=== PATIENT | male | born 1940 | race Caucasian/White ===

== ENCOUNTER 2019-03-18 10:53 | Day surgery (SDC) | payer MEDICARE | END 2019-03-18 23:33 | disposition home or self-care (01) | LOC: US 10:53 | DX: J90 Pleural effusion, not elsewhere classified (principal) | CPT/HCPCS: 32555; 71045; 88108 ==

== ENCOUNTER 2019-04-07 14:16 | Day surgery (SDC) | payer MEDICARE | END 2019-04-07 23:06 | disposition home or self-care (01) | LOC: US 14:16 | DX: Z48.813 Encounter for surgical aftercare following surgery on the respiratory system (principal); J90 Pleural effusion, not elsewhere classified; C92.10 Chronic myeloid leukemia, BCR/ABL-positive, not having achieved remission; R07.9 Chest pain, unspecified | CPT/HCPCS: 32555; 71045 ==

== ENCOUNTER 2019-05-20 13:28 | Emergency (ER) | payer MEDICARE ==
[~2019-05-20] VITALS: Ht 170.2 cm; Wt 72.6 kg
[2019-05-20] MEDS ORDERED: Aggrenox Capsu1 EACH PO (13:55)
[2019-05-20] MEDS ORDERED: LISI20 PO (13:55)
[2019-05-20] MEDS ORDERED: VITAMIN D-40010 MC1 PO (13:56)
[2019-05-20] MEDS ORDERED: Lovastatin10 MG PO (13:56)
[2019-05-20] MEDS ORDERED: Flomax0.4 MG PO (13:56)
[2019-05-20] MEDS ORDERED: METO50ER PO (13:57)
[2019-05-20] MEDS ORDERED: NORVASC5 MG PO (13:57)
[2019-05-20] MEDS ORDERED: [UNRECOGNIZED DRUG - OTHER] (13:57)
[2019-05-20 14:11] LABS: BASOPHILS ABSOLUTE AUTO 0.02 K/mm3 (0.00-0.23); BASOPHILS PERCENT AUTO 0 % (0-2); EOSINOPHILS ABSOLUTE AUTO 0.08 K/mm3 (0.00-0.68); EOSINOPHILS PERCENT AUTO 1 % (0-6); Hematocrit 40.6 % (37.0-53.0); Hemoglobin 12.6 g/dL (13.5-17.5); IMMATURE GRAN ABSOLUTE AUTO 0.03 K/mm3 (0.00-0.10); IMMATURE GRAN PERCENT AUTO 0 % (0-1); LYMPHOCYTES ABSOLUTE AUTO 2.82 K/mm3 (0.84-5.20); LYMPHOCYTES PERCENT AUTO 38 % (21-46); MONOCYTES ABSOLUTE AUTO 0.42 K/mm3 (0.16-1.47); MONOCYTES PERCENT AUTO 6 % (4-13); Mean Corpuscular HGB 30.8 pg (26.0-34.0); Mean Corpuscular Volume 99 fL (80-100); Mean Platelet Volume 8.8 fL (9.1-12.4); NEUTROPHILS ABSOLUTE AUTO 4.02 K/mm3 (1.96-9.15); NEUTROPHILS PERCENT AUTO 54 % (41-73); Platelet Count 269 K/mm3 (150-400); RDW Coefficient Variation 14.1 % (11.7-14.2); RDW Standard Deviation 51.6 fL (35.1-46.3); Red Blood Cell Count 4.09 M/mm3 (4.30-5.90); White Blood Cell Count 7.39 K/mm3 (4.00-11.30)
[2019-05-20 14:46] LABS: Alanine Aminotransfer (ALT/SGP 11 U/L (12-78); Albumin/Globulin Ratio 0.8 (0.8-1.8); Alk Phos 69 U/L (50-136); Anion Gap 3 mmol/L (6-16); Aspartate Aminotrans (AST/SGOT 16 U/L (12-37); Bilirubin, Total 0.3 mg/dL (0.1-1.0); Blood Urea Nitrogen 10 mg/dL (8-24); Bun/Creatinine Ratio 9.9 (12.0-20.0); CO2, Blood 28 mmol/L (21-32); Calcium, Blood 9.1 mg/dL (8.5-10.1); Chloride, Blood 112 mmol/L (98-108); Creatinine, Blood 1.01 mg/dL (0.60-1.20); Globulin, Blood 3.8 g/dL (2.2-4.0); Glomerular Filtration Rate >60 (60-); Glucose, Blood 125 mg/dL (70-99); Potassium, Blood 3.5 mmol/L (3.5-5.5); Sodium, Blood 143 mmol/L (136-145); Total Protein, Blood 6.8 g/dL (6.4-8.2)
[2019-05-20 14:54] LABS: International Normalized Ratio 1.07; Prothrombin Time Results 11.4 Sec (9.7-11.5)
== END 2019-05-20 16:27 | disposition home or self-care (01) ==
LOC: ER 13:28
PROVIDERS: Emergency Medicine; Physician Assistant
DX: J90 Pleural effusion, not elsewhere classified (principal); I10 Essential (primary) hypertension; C95.90 Leukemia, unspecified not having achieved remission; F17.210 Nicotine dependence, cigarettes, uncomplicated; Z86.73 Personal history of transient ischemic attack (TIA), and cerebral infarction without residual deficits
CPT/HCPCS: 32555; 36415; 71045; 71046; 80053; 85025; 85610; 85730; 93005; 93010; 99285-25

== ENCOUNTER 2019-06-25 10:19 | Inpatient (IN) | payer MEDICARE ==
[~2019-06-25] VITALS: Ht 175.3 cm; Wt 69.8 kg
[~2019-06-25 10:19] MED LIST: Aggrenox Capsu1 EACH PO; Flomax0.4 MG PO; LISI20 PO; Lovastatin10 MG PO; METO50ER PO; NORVASC5 MG PO; SPRYCEL PO; Vitamin D2000 UNIT PO
[2019-06-25 10:55] LABS: BASOPHILS ABSOLUTE AUTO 0.02 K/mm3 (0.00-0.23); BASOPHILS PERCENT AUTO 0 % (0-2); EOSINOPHILS ABSOLUTE AUTO 0.01 K/mm3 (0.00-0.68); EOSINOPHILS PERCENT AUTO 0 % (0-6); IMMATURE GRAN ABSOLUTE AUTO 0.04 K/mm3 (0.00-0.10); IMMATURE GRAN PERCENT AUTO 1 % (0-1); LYMPHOCYTES ABSOLUTE AUTO 2.04 K/mm3 (0.84-5.20); LYMPHOCYTES PERCENT AUTO 30 % (21-46); MONOCYTES ABSOLUTE AUTO 0.59 K/mm3 (0.16-1.47); MONOCYTES PERCENT AUTO 9 % (4-13); Mean Corpuscular HGB 30.9 pg (26.0-34.0); Mean Corpuscular Volume 100 fL (80-100); Mean Platelet Volume 9.1 fL (9.1-12.4); NEUTROPHILS PERCENT AUTO 60 % (41-73); Platelet Count 247 K/mm3 (150-400); RDW Coefficient Variation 15.4 % (11.7-14.2); RDW Standard Deviation 55.8 fL (35.1-46.3); Red Blood Cell Count 2.91 M/mm3 (4.30-5.90)
[2019-06-25 11:12] LABS: Albumin, Blood 2.6 g/dL (3.4-5.0); Albumin/Globulin Ratio 0.7 (0.8-1.8); Bilirubin, Total 0.6 mg/dL (0.1-1.0); Bun/Creatinine Ratio 19.2 (12.0-20.0); Calcium, Blood 8.8 mg/dL (8.5-10.1); Creatinine, Blood 1.72 mg/dL (0.60-1.20); Globulin, Blood 3.6 g/dL (2.2-4.0); Potassium, Blood 4.2 mmol/L (3.5-5.5); Total Protein, Blood 6.2 g/dL (6.4-8.2)
[2019-06-25 11:23] LABS: Troponin I 1.15 ng/mL (0.000-0.040)
[2019-06-25 12:16] LABS: International Normalized Ratio 1.07; Prothrombin Time Results 11.4 Sec (9.7-11.5)
[2019-06-25 13:46] LABS: Magnesium, Blood 2.1 mg/dL (1.6-2.4); Phosphorus, Blood 2.5 mg/dL (2.5-4.9)
[2019-06-25 16:26] LABS: Automated BF WBC Count 0.231 K/mm3 (0-999); Body Fluid WBC Count 231 /mm3 (0-999)
[2019-06-25 16:36] LABS: pH, Body Fluid 7.5
[2019-06-25 16:41] LABS: Lactate Dehydrogenase, Body Fl 69 U/L; Protein, Body Fluid 2.9 g/dL
[2019-06-25 17:29] LABS: RBC Count, Body Fluid 393 /mm3 (0-0)
[2019-06-25 17:34] LABS: Total Cell Count, Body Fluid 100
[2019-06-25 17:35] LABS: Appearance, Body Fluid Clear (Clear); Color, Body Fluid Yellow (None-Yellow)
[2019-06-25 17:54] LABS: Hematocrit 27.9 % (37.0-53.0); Hemoglobin 8.5 g/dL (13.5-17.5)
[2019-06-25 22:06] LABS: Hematocrit 28.3 % (37.0-53.0); Hemoglobin 8.6 g/dL (13.5-17.5)
[2019-06-26 04:11] LABS: BASOPHILS ABSOLUTE AUTO 0.02 K/mm3 (0.00-0.23); BASOPHILS PERCENT AUTO 0 % (0-2); EOSINOPHILS ABSOLUTE AUTO 0.04 K/mm3 (0.00-0.68); EOSINOPHILS PERCENT AUTO 1 % (0-6); Hematocrit 26.7 % (37.0-53.0); Hemoglobin 8.1 g/dL (13.5-17.5); IMMATURE GRAN ABSOLUTE AUTO 0.02 K/mm3 (0.00-0.10); IMMATURE GRAN PERCENT AUTO 0 % (0-1); LYMPHOCYTES ABSOLUTE AUTO 1.69 K/mm3 (0.84-5.20); LYMPHOCYTES PERCENT AUTO 34 % (21-46); MONOCYTES ABSOLUTE AUTO 0.46 K/mm3 (0.16-1.47); MONOCYTES PERCENT AUTO 9 % (4-13); Mean Corpuscular HGB 30.6 pg (26.0-34.0); Mean Corpuscular HGB Conc 30.3 g/dL (31.5-36.5); Mean Corpuscular Volume 101 fL (80-100); Mean Platelet Volume 9.3 fL (9.1-12.4); NEUTROPHILS ABSOLUTE AUTO 2.81 K/mm3 (1.96-9.15); NEUTROPHILS PERCENT AUTO 56 % (41-73); Platelet Count 230 K/mm3 (150-400); RDW Coefficient Variation 15.7 % (11.7-14.2); RDW Standard Deviation 56.9 fL (35.1-46.3); Red Blood Cell Count 2.65 M/mm3 (4.30-5.90); White Blood Cell Count 5.04 K/mm3 (4.00-11.30)
[2019-06-26 04:32] LABS: Albumin, Blood 2.1 g/dL (3.4-5.0); Albumin/Globulin Ratio 0.7 (0.8-1.8); Bilirubin, Total 0.4 mg/dL (0.1-1.0); Bun/Creatinine Ratio 23.6 (12.0-20.0); Calcium, Blood 8.3 mg/dL (8.5-10.1); Creatinine, Blood 1.44 mg/dL (0.60-1.20); Potassium, Blood 4.1 mmol/L (3.5-5.5); Total Protein, Blood 5.1 g/dL (6.4-8.2)
[2019-06-26 14:32] LABS: Hematocrit 26.4 % (37.0-53.0); Hemoglobin 8.1 g/dL (13.5-17.5); Mean Corpuscular HGB 30.3 pg (26.0-34.0); Mean Corpuscular HGB Conc 30.7 g/dL (31.5-36.5); Mean Corpuscular Volume 99 fL (80-100); Mean Platelet Volume 8.9 fL (9.1-12.4); Platelet Count 254 K/mm3 (150-400); RDW Coefficient Variation 15.5 % (11.7-14.2); RDW Standard Deviation 55.6 fL (35.1-46.3); Red Blood Cell Count 2.67 M/mm3 (4.30-5.90); White Blood Cell Count 5.29 K/mm3 (4.00-11.30)
[2019-06-26 14:57] LABS: Percent Saturation 26.1 % (20.0-50.0)
[2019-06-27 05:14] LABS: BASOPHILS ABSOLUTE AUTO 0.01 K/mm3 (0.00-0.23); BASOPHILS PERCENT AUTO 0 % (0-2); EOSINOPHILS ABSOLUTE AUTO 0.08 K/mm3 (0.00-0.68); EOSINOPHILS PERCENT AUTO 2 % (0-6); Hematocrit 23.4 % (37.0-53.0); Hemoglobin 7.3 g/dL (13.5-17.5); IMMATURE GRAN ABSOLUTE AUTO 0.02 K/mm3 (0.00-0.10); IMMATURE GRAN PERCENT AUTO 1 % (0-1); LYMPHOCYTES ABSOLUTE AUTO 1.09 K/mm3 (0.84-5.20); LYMPHOCYTES PERCENT AUTO 29 % (21-46); MONOCYTES ABSOLUTE AUTO 0.38 K/mm3 (0.16-1.47); MONOCYTES PERCENT AUTO 10 % (4-13); Mean Corpuscular HGB 30.5 pg (26.0-34.0); Mean Corpuscular HGB Conc 31.2 g/dL (31.5-36.5); Mean Corpuscular Volume 98 fL (80-100); Mean Platelet Volume 9.1 fL (9.1-12.4); NEUTROPHILS ABSOLUTE AUTO 2.18 K/mm3 (1.96-9.15); NEUTROPHILS PERCENT AUTO 58 % (41-73); Platelet Count 230 K/mm3 (150-400); RDW Coefficient Variation 15.3 % (11.7-14.2); RDW Standard Deviation 54.7 fL (35.1-46.3); Red Blood Cell Count 2.39 M/mm3 (4.30-5.90); White Blood Cell Count 3.76 K/mm3 (4.00-11.30)
[2019-06-27 05:33] LABS: Anion Gap 2 mmol/L (6-16); Blood Urea Nitrogen 28 mg/dL (8-24); Bun/Creatinine Ratio 24.1 (12.0-20.0); CO2, Blood 33 mmol/L (21-32); Calcium, Blood 8.8 mg/dL (8.5-10.1); Chloride, Blood 104 mmol/L (98-108); Creatinine, Blood 1.16 mg/dL (0.60-1.20); Glomerular Filtration Rate >60 (60-); Glucose, Blood 95 mg/dL (70-99); Potassium, Blood 3.6 mmol/L (3.5-5.5); Sodium, Blood 139 mmol/L (136-145)
[2019-06-27 15:57] LABS: Hematocrit 30.2 % (37.0-53.0); Hemoglobin 9.8 g/dL (13.5-17.5); Mean Corpuscular HGB 30.8 pg (26.0-34.0); Mean Corpuscular HGB Conc 32.5 g/dL (31.5-36.5); Mean Corpuscular Volume 95 fL (80-100); Mean Platelet Volume 8.8 fL (9.1-12.4); Platelet Count 272 K/mm3 (150-400); RDW Coefficient Variation 16.3 % (11.7-14.2); RDW Standard Deviation 56.8 fL (35.1-46.3); Red Blood Cell Count 3.18 M/mm3 (4.30-5.90); White Blood Cell Count 4.41 K/mm3 (4.00-11.30)
[2019-06-28 08:25] LABS: Hematocrit 29.1 % (37.0-53.0); Hemoglobin 9.3 g/dL (13.5-17.5); Mean Corpuscular HGB 30.4 pg (26.0-34.0); Mean Corpuscular Volume 95 fL (80-100); Platelet Count 264 K/mm3 (150-400); RDW Coefficient Variation 16.6 % (11.7-14.2); RDW Standard Deviation 56.6 fL (35.1-46.3); Red Blood Cell Count 3.06 M/mm3 (4.30-5.90); White Blood Cell Count 3.97 K/mm3 (4.00-11.30)
[2019-06-29 08:28] LABS: Anion Gap 1 mmol/L (6-16); Blood Urea Nitrogen 10 mg/dL (8-24); Bun/Creatinine Ratio 11.8 (12.0-20.0); CO2, Blood 37 mmol/L (21-32); Calcium, Blood 9.2 mg/dL (8.5-10.1); Chloride, Blood 103 mmol/L (98-108); Creatinine, Blood 0.85 mg/dL (0.60-1.20); Glomerular Filtration Rate >60 (60-); Glucose, Blood 100 mg/dL (70-99); Potassium, Blood 3.5 mmol/L (3.5-5.5); Sodium, Blood 141 mmol/L (136-145)
[2019-06-29] MEDS ORDERED: Aspir 8181 MG PO (16:11)
[2019-06-29] MEDS ORDERED: OMEP20ER PO (16:11)
[2019-06-29] MEDS ORDERED: FURO20 PO (16:11)
[2019-06-29] MEDS ORDERED: FERSU300 PO (16:15)
== END 2019-06-29 16:51 | disposition home or self-care (01) | DRG 186 ==
LOC: ER 10:19 → MEDS 16:10 → PCU 16:10 → MEDS 06-26 11:13 → ENPENDDIS 06-29 14:53 → MEDS 06-29 16:51
PROVIDERS: Emergency Medicine; Hospitalist; Nurse Practitioner Acute Care; ADMIT Internal Medicine
PROC: 0W993ZZ Drainage of Right Pleural Cavity, Percutaneous Approach (ICD-10-PCS; 2019-06-25)
PROC: 30233N1 Transfusion of Nonautologous Red Blood Cells into Peripheral Vein, Percutaneous Approach (ICD-10-PCS; principal; 2019-06-26)
PROC: 0DJ08ZZ Inspection of Upper Intestinal Tract, Via Natural or Artificial Opening Endoscopic (ICD-10-PCS; 2019-06-28)
DX: J90 Pleural effusion, not elsewhere classified (principal); J96.21 Acute and chronic respiratory failure with hypoxia; I21.4 Non-ST elevation (NSTEMI) myocardial infarction; C92.10 Chronic myeloid leukemia, BCR/ABL-positive, not having achieved remission; N17.9 Acute kidney failure, unspecified; D62 Acute posthemorrhagic anemia; Z85.46 Personal history of malignant neoplasm of prostate; Z86.73 Personal history of transient ischemic attack (TIA), and cerebral infarction without residual deficits; E78.5 Hyperlipidemia, unspecified; I10 Essential (primary) hypertension; F17.210 Nicotine dependence, cigarettes, uncomplicated; E86.0 Dehydration; T45.1X5A Adverse effect of antineoplastic and immunosuppressive drugs, initial encounter; Y92.9 Unspecified place or not applicable
CPT/HCPCS: 32555; 36415; 36430; 70450; 71045; 71046; 80048; 80053; 82550; 82728; 83540; 83550; 83615; 83690; 83735; 83880; 83986; 84100; 84145; 84157; 84484; 85014; 85018; 85025; 85027; 85610; 85730; 86850; 86900; 86901; 86923; 89051; 93005; 93010; 93306; 94760; 97110; 97116; 97129; 97130; 97162; 97166; 97530; 97535; 99285-25; C9113; J1940; J2704; J2916; J7050; J7120; P9016

== ENCOUNTER 2019-07-19 16:55 | Inpatient (IN) | payer MEDICARE ==
[~2019-07-19] VITALS: Ht 172.7 cm; Wt 68.4 kg
[~2019-07-19 16:55] MED LIST changes: +Aspir 8181 MG PO; +FERSU300 PO; +FURO20 PO; +METO25ER PO; -METO50ER PO; +OMEP20ER PO
[2019-07-19] MEDS ORDERED: ZESTRIL40 M2 PO (17:28)
[2019-07-19] MEDS ORDERED: AMLODIPINE BESYL5 MG PO (17:29)
[2019-07-19 18:17] LABS: Source, Urine Clean Catch
[2019-07-19 18:21] LABS: Bilirubin, Urine Neg (Neg); Blood, Urine Neg (Neg); Glucose Qualitative, Urine 2+ (Neg); Ketones, Urine Neg (Neg); Leukocyte Esterase, Urine 2+ (Neg); Nitrite, Urine Pos (Neg); Protein, Urine 1+ (Neg); Urobilinogen, Urine NORM (Normal)
[2019-07-19 18:23] LABS: Appearance, Urine Clear (Clear); Color, Urine Yellow (P-Yellow)
[2019-07-19 18:29] LABS: Bacteria Mod /hpf; Red Blood Cells, Urine 0-2 /hpf (0-2); Squamous Epithelial Cells Few /hpf (Few)
[2019-07-19 21:27] LABS: Anion Gap 2 mmol/L (6-16); Blood Urea Nitrogen 18 mg/dL (8-24); Bun/Creatinine Ratio 20.9 (12.0-20.0); CO2, Blood 29 mmol/L (21-32); Calcium, Blood 9.3 mg/dL (8.5-10.1); Chloride, Blood 111 mmol/L (98-108); Creatinine, Blood 0.86 mg/dL (0.60-1.20); Glomerular Filtration Rate >60 (60-); Glucose, Blood 81 mg/dL (70-99); Sodium, Blood 142 mmol/L (136-145)
[2019-07-19 21:28] LABS: Potassium, Blood 6.4 mmol/L (3.5-5.5)
[2019-07-19 22:20] LABS: Source, Urine Catheter
--- NOTE | 2019-07-19 22:22 | NUR ---
CRITICAL HIGH POTASSIUM LAB NOTIFIED THIS RN OF 2100 LAB DRAW HAVING A CRITICAL HIGH POTASSIUM OF 6.4. THIS IS EVEN HIGHER THAN PT'S INTITIAL POTASSIUM OF 6.3 EVEN AFTER MEDICATIONS GIVEN IN ED. PT WAS HAVING LOW OUTPUT AFTER LASIX PO DOSE GIVEN. ONLY HAVING APPROX 200 OUT SINCE GIVEN. NOTIFIED CINDY TO. NEW ORDER FOR IV BUMEX 2 MG X 1 AND STRICT I'S AND O'S. ALSO ORDER FOR CATHETER IF PT AGREED. PT OK WITH CATHETER. 14 GREEK HESS CATHETER PLACED. PT TOLERATED WELL. IV BUMEX GIVEN. RECHECK K AT 0100 AND NOTIFY IF OUTPUT CONTINUES TO BE LOW AFTER IV BUMEX. WILL CONTINUE TO MONITOR.
[2019-07-19 22:23] LABS: Bilirubin, Urine Neg (Neg); Blood, Urine 1+ (Neg); Glucose Qualitative, Urine Neg (Neg); Ketones, Urine Neg (Neg); Leukocyte Esterase, Urine 3+ (Neg); Nitrite, Urine Pos (Neg); Protein, Urine Neg (Neg); Urobilinogen, Urine NORM (Normal)
[2019-07-19 22:25] LABS: Appearance, Urine Clear (Clear); Color, Urine Yellow (P-Yellow)
[2019-07-19 22:28] LABS: Red Blood Cells, Urine 0-2 /hpf (0-2); Squamous Epithelial Cells Few /hpf (Few); White Blood Cells, Urine TNTC /hpf (0-5)
[2019-07-19 22:29] LABS: Bacteria Mod /hpf
[2019-07-20 01:34] LABS: Anion Gap 2 mmol/L (6-16); Blood Urea Nitrogen 19 mg/dL (8-24); Bun/Creatinine Ratio 21.1 (12.0-20.0); CO2, Blood 29 mmol/L (21-32); Calcium, Blood 9.2 mg/dL (8.5-10.1); Chloride, Blood 109 mmol/L (98-108); Glomerular Filtration Rate >60 (60-); Glucose, Blood 93 mg/dL (70-99); Potassium, Blood 6.5 mmol/L (3.5-5.5); Sodium, Blood 140 mmol/L (136-145)
--- NOTE | 2019-07-20 04:56 | NUR ---
SHIFT SUMMARY PT'S POTASSIUM CONTINUED TO RISE SLIGHTLY THROUGHOUT THE NIGHT. STARTING 6.3, THEN 6.4 AND LAST DRAW AT 6.5. SOCIAL CONTACT WORKER HOSPITALIST NOTIFIED THROUGHOUT THE NIGHT. SEE PREVIOUS NOTE FOR PRIOR ORDERS. WITH LAST ELEVATED K, DR. RAY NOTIFIED WITH NEW ORDERS FOR CALCIUM GLUCONATE, DEXTROSE, INSULIN, AND SODIUM BICARB. NEXT REDRAW AT 0500. EHSS CATH REMAINS PATENT DRAINING LIGHT YELLOW URINE. GOOD OUTPUT FOLLOWING BUMEX DOSE. PT HAD 3 MEDIUM-LARGE BOWEL MOVEMENTS TONIGHT. TELEMETRY SR IN THE 90'S THROUGHOUT THE NIGHT. PT HAS NO COMPLAINTS EXCEPT FOR SOME PAIN AT THE INSERTION SITE FOR HESS CATHETER. VITAL SIGNS STABLE. WILL CONTINUE TO MONITOR AND AWAIT FURTHER LAB RESULTS.
[2019-07-20 05:41] LABS: Albumin, Blood 2.5 g/dL (3.4-5.0); Anion Gap 2 mmol/L (6-16); Blood Urea Nitrogen 18 mg/dL (8-24); Bun/Creatinine Ratio 20.5 (12.0-20.0); CO2, Blood 32 mmol/L (21-32); Calcium, Blood 9.5 mg/dL (8.5-10.1); Chloride, Blood 105 mmol/L (98-108); Creatinine, Blood 0.88 mg/dL (0.60-1.20); Glomerular Filtration Rate >60 (60-); Glucose, Blood 96 mg/dL (70-99); Phosphorus, Blood 3.4 mg/dL (2.5-4.9); Potassium, Blood 5.6 mmol/L (3.5-5.5); Sodium, Blood 139 mmol/L (136-145)
[2019-07-20 11:24] LABS: Anion Gap 3 mmol/L (6-16); Blood Urea Nitrogen 18 mg/dL (8-24); Bun/Creatinine Ratio 20.4 (12.0-20.0); CO2, Blood 32 mmol/L (21-32); Calcium, Blood 9.6 mg/dL (8.5-10.1); Chloride, Blood 101 mmol/L (98-108); Creatinine, Blood 0.88 mg/dL (0.60-1.20); Glomerular Filtration Rate >60 (60-); Glucose, Blood 100 mg/dL (70-99); Potassium, Blood 5.7 mmol/L (3.5-5.5); Sodium, Blood 136 mmol/L (136-145)
--- NOTE | 2019-07-20 17:23 | NUR ---
SHIFT SUMMARY: PT'S POTASSIUM LEVEL TRENDING DOWN WITH LAST BLOOD TEST. PT A&O IN ROOM. ABLE TO USE URINAL WHEN NEEDED AND USES CALL LIGHT APPROPRIATLEY. HESS CATHETER REMOVED THIS AM PER DR ORDER. PT HAS SOME LEFT SIDED WEAKNESS AND IS A SBA TO AMBULATE. VSS. BLE EDEMA. LUNGS ARE DIMINISHED AND PT IS ON 2L OXYGEN VIA NC. WILL CONTINUE TO MONITOR PT UNTIL REPORT IS GIVEN TO NIGHT RN.
[2019-07-20 19:48] LABS: Phosphorus, Blood 3.9 mg/dL (2.5-4.9); Uric Acid, Blood 4.6 mg/dL (3.5-7.2)
--- NOTE | 2019-07-20 19:54 | NUR ---
ASSUMED CARE. AYSHA IS SITTING UP IN BED, WATCHING TV, DOZING OFF HER AND THERE. AOX3. COOPERATIVE. DENIES ANY PAIN OR DISCOMFORT. DENIES ANY CARDIAC SYMPTOMS. TELE IS ON AND RUNNING SINUS AT 91. REPLACED TELE PADS. LAST POTASSIUM WAS 5.3. MILD EDEMA IN THE BLE. LUNG SOUNDS DIMINISHED THROUGHOUT. DYSPNEA ON EXERTION. O2 AT 2 LITERS. SATS GOOD. VS WNL. LAB IN ROOM TO DRAW CHEM 8. WILL CONTINUE TO MONITOR. CALL LIGHT IN REACH.
[2019-07-20 20:31] LABS: Anion Gap 4 mmol/L (6-16); Blood Urea Nitrogen 20 mg/dL (8-24); Bun/Creatinine Ratio 18.3 (12.0-20.0); CO2, Blood 32 mmol/L (21-32); Calcium, Blood 8.9 mg/dL (8.5-10.1); Chloride, Blood 101 mmol/L (98-108); Creatinine, Blood 1.09 mg/dL (0.60-1.20); Glomerular Filtration Rate >60 (60-); Glucose, Blood 128 mg/dL (70-99); Potassium, Blood 4.6 mmol/L (3.5-5.5); Sodium, Blood 137 mmol/L (136-145)
--- NOTE | 2019-07-20 23:31 | NUR ---
AYSHA IS SITTING UP IN BED, LEANED TO SIDE WITH EYES CLOSED. CALL LIGHT IN HAND. NO SIGNS OF DISTRESS. ON WAY OUT OF ROOM, HE TURNED OFF HIS LIGHT. ASKED IF HE NEEDED ANYTHING HE SAID NO.
--- NOTE | 2019-07-21 05:35 | NUR ---
SHIFT SUMMARY: 79 Y/O HERE FOR HYPERKALEMIA. AYSHA HAS HAD A BETTER NIGHT. HE HAS SLEPT OFF AND ON THROUGHOUT THE SHIFT. VS HAVE BEEN STABLE. TELEMETRY RUNNING IN THE 70-80'S NORMAL SINUS. ABLE TO CHANGE HIS OWN ATTENDS, SBA TO THE BATHROOM. VERY PRIVATE MAN HE ASK FOR STAFF TO STEP OUT WHILE HE GOES. HE HAS DENIED ANY NEEDS OTHER THEN A SNACK HER OR THERE. NO COMPLAINTS THIS SHIFT. LAST POTASSIUM RESULT WAS 4.6. MEDS WERE GIVEN WHOLE WITH WATER. USES CALL LIGHT APPROPRIATLY. WILL REPORT TO DAY SHIFT.
[2019-07-21 05:42] LABS: Anion Gap 2 mmol/L (6-16); Blood Urea Nitrogen 20 mg/dL (8-24); Bun/Creatinine Ratio 21.2 (12.0-20.0); CO2, Blood 34 mmol/L (21-32); Calcium, Blood 9.1 mg/dL (8.5-10.1); Chloride, Blood 102 mmol/L (98-108); Creatinine, Blood 0.94 mg/dL (0.60-1.20); Glomerular Filtration Rate >60 (60-); Glucose, Blood 97 mg/dL (70-99); Magnesium, Blood 1.4 mg/dL (1.6-2.4); Potassium, Blood 4.7 mmol/L (3.5-5.5); Sodium, Blood 138 mmol/L (136-145)
[2019-07-21] MEDS ORDERED: FERSU300 PO (10:04)
[2019-07-21] MEDS ORDERED: MAGNESIUM OXID500 MG PO (10:06)
[2019-07-21] MEDS ORDERED: Milk Of Ma400 MG/5 M PO (10:07)
--- NOTE | 2019-07-21 10:49 | NUR ---
DISCHARGE SUMMARY PT DISCHARGED TO HOME. PT LEFT ROOM VIA WHEELCHAIR WITH RN ESCORT AT ABOUT 1045. PT'S DAUGHTERS AND PATIENT EDUCATED ON NEW MEDICATIONS, FOLLOW UP APPOINTMENTS, DISCHARGE INSTRUCTIONS, ALL QUESTIONS ANSWERED. IV DC'D BELONGINGS RETURNED.
== END 2019-07-21 10:34 | disposition home health service (06) | DRG 641 ==
LOC: ER 16:55 → MEDS 16:56 → ENPENDDIS 07-21 09:00 → MEDS 07-21 10:34
PROVIDERS: Emergency Medicine; Family Medicine; Nurse Practitioner Acute Care; ADMIT Internal Medicine
DX: E87.5 Hyperkalemia (principal); C92.10 Chronic myeloid leukemia, BCR/ABL-positive, not having achieved remission; I69.951 Hemiplegia and hemiparesis following unspecified cerebrovascular disease affecting right dominant side; J96.11 Chronic respiratory failure with hypoxia; N40.0 Benign prostatic hyperplasia without lower urinary tract symptoms; E78.5 Hyperlipidemia, unspecified; I10 Essential (primary) hypertension; F17.210 Nicotine dependence, cigarettes, uncomplicated; Z92.21 Personal history of antineoplastic chemotherapy; Z79.82 Long term (current) use of aspirin
CPT/HCPCS: 36415; 80048; 80069; 81001; 82330; 83735; 84100; 84132; 84550; 87086; 93005; 93010; 94640; 94760; 96361; 96365; 96375; 99284-25; J0610; J1815; J1940; J7030; J7799

== ENCOUNTER 2019-08-23 11:03 | Emergency (ER) | payer MEDICARE ==
[~2019-08-23] VITALS: Ht 170.2 cm; Wt 70.8 kg
[~2019-08-23 11:03] MED LIST changes: +AMLODIPINE BESYL5 MG PO; +MAGNESIUM OXID500 MG PO; +Milk Of Ma400 MG/5 M PO; +ZESTRIL40 M2 PO
[2019-08-23 12:06] LABS: BASOPHILS ABSOLUTE AUTO 0.03 K/mm3 (0.00-0.23); BASOPHILS PERCENT AUTO 0 % (0-2); EOSINOPHILS ABSOLUTE AUTO 0.34 K/mm3 (0.00-0.68); EOSINOPHILS PERCENT AUTO 3 % (0-6); Hematocrit 24.5 % (37.0-53.0); Hemoglobin 7.2 g/dL (13.5-17.5); IMMATURE GRAN ABSOLUTE AUTO 0.08 K/mm3 (0.00-0.10); IMMATURE GRAN PERCENT AUTO 1 % (0-1); LYMPHOCYTES ABSOLUTE AUTO 2.74 K/mm3 (0.84-5.20); LYMPHOCYTES PERCENT AUTO 27 % (21-46); MONOCYTES ABSOLUTE AUTO 0.74 K/mm3 (0.16-1.47); MONOCYTES PERCENT AUTO 7 % (4-13); Mean Corpuscular HGB 30.8 pg (26.0-34.0); Mean Corpuscular HGB Conc 29.4 g/dL (31.5-36.5); Mean Corpuscular Volume 105 fL (80-100); Mean Platelet Volume 9.2 fL (9.1-12.4); NEUTROPHILS ABSOLUTE AUTO 6.32 K/mm3 (1.96-9.15); NEUTROPHILS PERCENT AUTO 62 % (41-73); Platelet Count 391 K/mm3 (150-400); RDW Coefficient Variation 14.3 % (11.7-14.2); RDW Standard Deviation 54.4 fL (35.1-46.3); Red Blood Cell Count 2.34 M/mm3 (4.30-5.90); White Blood Cell Count 10.25 K/mm3 (4.00-11.30)
[2019-08-23 12:18] LABS: Alanine Aminotransfer (ALT/SGP 15 U/L (12-78); Albumin, Blood 2.8 g/dL (3.4-5.0); Albumin/Globulin Ratio 0.7 (0.8-1.8); Alk Phos 55 U/L (50-136); Anion Gap 2 mmol/L (6-16); Aspartate Aminotrans (AST/SGOT 15 U/L (12-37); Bilirubin, Total 0.1 mg/dL (0.1-1.0); Blood Urea Nitrogen 18 mg/dL (8-24); Bun/Creatinine Ratio 20.5 (12.0-20.0); CO2, Blood 35 mmol/L (21-32); Chloride, Blood 106 mmol/L (98-108); Creatinine, Blood 0.88 mg/dL (0.60-1.20); Globulin, Blood 4.1 g/dL (2.2-4.0); Glomerular Filtration Rate >60 (60-); Glucose, Blood 104 mg/dL (70-99); Potassium, Blood 4.5 mmol/L (3.5-5.5); Sodium, Blood 143 mmol/L (136-145); Total Protein, Blood 6.9 g/dL (6.4-8.2); Troponin I <0.015 ng/mL (0.000-0.040)
[2019-08-23 12:23] LABS: International Normalized Ratio 1.02; Prothrombin Time Results 10.9 Sec (9.7-11.5)
== END 2019-08-23 18:05 | disposition home or self-care (01) ==
LOC: ER 11:03
PROVIDERS: Emergency Medicine
DX: J90 Pleural effusion, not elsewhere classified (principal); D64.9 Anemia, unspecified; F17.200 Nicotine dependence, unspecified, uncomplicated; Z91.09 Other allergy status, other than to drugs and biological substances; Z79.82 Long term (current) use of aspirin; Z79.899 Other long term (current) drug therapy
CPT/HCPCS: 36415; 36430; 71045; 80053; 83880; 84484; 85025; 85610; 85730; 86850; 86900; 86901; 86923; 93005; 93010; 94640; 99284-25; J7030; P9016

== ENCOUNTER 2019-08-30 14:24 | Day surgery (SDC) | payer MEDICARE | END 2019-08-30 22:40 | disposition home or self-care (01) | LOC: US 14:24 | DX: J90 Pleural effusion, not elsewhere classified (principal) | CPT/HCPCS: 32555; 71045 ==